=== PATIENT | female | born 1965 | race Caucasian/White ===

== ENCOUNTER 2017-06-20 16:56 | Emergency (ER) | payer OTHER, SELFPAY ==
[2017-06-20 17:12] VITALS: BP 103/60; PULSE 97; RESP 18; TEMP 37.2; O2SAT 100; BMI 22.0
[2017-06-20 17:43] VITALS: BP 148/81; PULSE 88; RESP 16; O2SAT 99
--- NOTE | 2017-06-20 17:45 | PC.NURSE ---
Only complaint is dizziness/nausea when she moves her head.
--- NOTE | 2017-06-20 18:21 | ED.DIZZY ---
HPI - Dizziness General Chief Complaint: Dizziness Stated Complaint: VERTIGO Time Seen by Provider: 06/20/17 17:31 Source: patient and RN notes reviewed Mode of arrival: wheelchair Limitations: no limitations History of Present Illness HPI Narrative: Patient is a 51-year-old female who presents with sudden-onset dizziness around 930 her 10:00 a.m.. She said she woke up at 8:30 a.m. she went to the bathroom she went back to sleep and this woke her up. If she lies flat and still she feels okay however any movement turning her head in either direction or sitting up makes her extremely dizzy. She vomited 1 time really does not feel nauseous. No chest pain heart palpitations abdominal pain. She denies any focal deficits. MD complaint: dizziness Related Data Previous Rx's Medication Instructions Recorded diazepam [Valium] 5 mg PO TID PRN #10 tab 06/20/17 ondansetron [Zofran ODT] 4 mg PO Q6H PRN #10 tab 06/20/17 Allergies Allergy/AdvReac Type Severity Reaction Status Date / Time No Known Drug Allergies Allergy Verified 06/20/17 17:17 Review of Systems Review of Systems All systems reviewed & are unremarkable except as noted in HPI and below Constitutional Denies chills, Denies fever(s), Denies headache(s), Denies lethargy and Denies weakness Eyes Denies loss of vision ENT Ears, Nose, Mouth, and Throat: Reports system reviewed and no additional complaints, except as docu, Reports vertigo, Reports dizziness and Denies headache(s) Cardiovascular Denies chest pain, Denies syncope, Denies irregular heart rhythm, Denies lightheadedness, Denies palpitations, Denies dyspnea, Denies dyspnea on exertion and Denies orthopnea Respiratory Denies cough, Denies dyspnea, Denies dyspnea on exertion and Denies wheezing Gastrointestinal Gastrointestinal: Denies diarrhea, Denies nausea and Reports vomiting Integumentary/Breasts Denies pruritus, Denies erythema, Denies rash and Denies wounds Comments: History of basal cell skin cancer Neurologic Reports system reviewed and no additional complaints, except as docu, Reports as per HPI, Reports vertigo, Reports dizziness, Denies syncope, Denies headache(s), Denies loss of vision and Denies weakness Endocrine Denies palpitations Allergic/Immunologic Denies wheezing [facility] History Basal cell carcinoma (Acute) Melanoma (Acute) Social History Smoking Status: Never smoker Exam Const General: cooperative and well developed Nutritional Appearance: well nourished Orientation: alert, awake, oriented x3 and not confused Eyes Eyelids: eyelids normal Conjunctivae: conjunctivae normal Pupils: PERRL EOM: EOM intact bilaterally and nystagmus (To the right) Neck Neck: normal visual inspection, trachea midline, No lymphadenopathy, No midline deformity and No JVD Lymphatic: No lymphedema Resp Effort & Inspection: normal respiratory effort, able to speak in complete sentences, no respiratory distress and no use of accessory muscles Auscultation: clear to auscultation bilaterally, no rales, no rhonchi and no wheezes Cardio Rate: regular rate Rhythm: regular rhythm Heart Sounds: no click, no gallops, no murmurs and no rubs Pulses: normal peripheral pulses GI Inspection: non-distended Palpation: soft, no hepatosplenomegaly, No guarding, No pulsatile mass and No tender Auscultation: normal bowel sounds Neuro General: alert, oriented x3, gait normal and no focal motor deficits Cranial Nerves: nystagmus (To the right) Speech: speech normal Motor: strength 5/5 throughout Sensory Exam: no sensory deficits noted Coordination: [id number] test normal and [id number] test normal MDM - Dizziness MDM Narrative Medical decision making narrative: Patient is feeling much better after Valium. She is sitting up she feels like she is able to go home. We discussed warning signs of when to return to the ED. Symptoms are worse with movement and better with being still. Consistent with benign paroxysmal positional vertigo. She does have peripheral nystagmus as well. NIH Stroke Scale/Score (NIHSS) from [email or web address] on 06/20/2017 All calculations should be rechecked by clinician prior to use RESULT SUMMARY: 0 points NIH Stroke Scale INPUTS: 1A: Level of consciousness ???> 0 = Alert; keenly responsive 1B: Ask month and age ???> 0 = Both questions right 1C: 'Blink eyes' & 'squeeze hands' ???> 0 = Performs both tasks 2: Horizontal extraocular movements ???> 0 = Normal 3: Visual arriola ???> 0 = No visual loss 4: Facial palsy ???> 0 = Normal symmetry 5A: Left arm motor drift ???> 0 = No drift for 10 seconds 5B: Right arm motor drift ???> 0 = No drift for 10 seconds 6A: Left leg motor drift ???> 0 = No drift for 5 seconds 6B: Right leg motor drift ???> 0 = No drift for 5 seconds 7: Limb Ataxia ???> 0 = No ataxia 8: Sensation ???> 0 = Normal; no sensory loss 9: Language/aphasia ???> 0 = Normal; no aphasia 10: Dysarthria ???> 0 = Normal 11: Extinction/inattention ???> 0 = No abnormality Differential Diagnosis Likely adverse reaction to drug, benign paroxysmal positional vertigo, orthostatic hypotension, vertebral basilar insufficiency, cerebrovascular accident, acute vestibular neuronitis and transient cerebral ischemia Medical Records Attestation: I reviewed the patient's medical records. Lab Data Attestation: I reviewed the patient's lab results. Result diagrams: 06/20/17 18:48 06/20/17 18:29 Lab Results 06/20/17 06/20/17 Range/Units 18:29 18:48 WBC 7.9 (4.5-11.0) X10^3/uL RBC 4.43 (4.0-5.2) X10^6/uL Hgb 13.5 (12.0-16.0) g/dL Hct 39.8 (36-46) % MCV 89.9 (80-100) fL MCH 30.6 (26-34) PG MCHC 34.0 (30-36) % RDW 13.3 (11.6-14.8) % Plt Count 237 (150-400) X10^3/uL Neut % (Auto) 83.4 H (50-75) % Lymph % (Auto) 11.9 L (25-40) % Holt % (Auto) 3.7 (3-14) % Eos % (Auto) 0.0 L (2-4) % Baso % (Auto) 1.0 (0-2) % Neut # (Auto) 6600 H (3809-4556) /uL Sodium 139 (137-145) mmol/L Potassium 3.8 (3.4-5.1) mmol/L Chloride 104.0 (98-107) mmol/L Carbon Dioxide 22.0 (22-32) mmol/L BUN 15.0 (7-17) mg/dL Creatinine 0.70 (0.52-1.04) mg/dL Estimated GFR > 60.0 (>60) mL/min BUN/Creatinine Ratio 21.4 (6-22) Glucose 103 H (70-100) mg/dL Calcium 9.2 (8.4-10.2) mg/dL ECG Data Attestation: I personally reviewed and interpreted this ECG as follows: Prior ECG tracings: available for review Interpretation: Normal sinus rhythm rate [address] changes no prior Course Orders Ordered: ED Orders 06/20/17 17:32 EKG-12 Lead Stat 06/20/17 18:29 Basic Metabolic Panel Stat 06/20/17 18:48 Complete Blood Count AUTO DIFF Stat Discontinued Medications Diazepam (Valium) 5 mg PO NOW ONE Stop: 06/20/17 19:43 Last Admin: 06/20/17 19:48 Dose: 5 mg Sodium Chloride (Normal Saline 0.9%) 1,000 mls @ 1,000 mls/hr IV BOLUS ONE Stop: 06/20/17 19:27 Last Infusion: 06/20/17 20:33 Dose: 0 mls/hr Admin: 06/20/17 19:07 Dose: 1,000 mls/hr Sodium Chloride (Normal Saline 0.9%) 1,000 mls @ 150 mls/hr IV CONT AMY Last Admin: 06/20/17 20:33 Dose: Meclizine HCl (Antivert) 50 mg PO NOW ONE Stop: 06/20/17 18:29 Last Admin: 06/20/17 19:05 Dose: 50 mg Ondansetron HCl (Zofran) 4 mg IV NOW ONE Stop: 06/20/17 18:29 Last Admin: 06/20/17 18:55 Dose: 4 mg Ondansetron HCl (Zofran Odt Prepack) 1 bottle MISC SEEINSTR ONE Stop: 06/20/17 20:27 Last Admin: 06/20/17 20:38 Dose: 1 bottle Reevaluation(s) Reevaluation #1: Sitting up after meclizine appears a little better but she still says that she still feels dizzy. No longer nauseated tired rating oral fluids. Will try Zofran. Time: 19:42 Last Vital Signs Temp 99.0 F 06/20/17 17:12 Pulse 77 06/20/17 20:40 Resp 16 06/20/17 20:40 BP 108/54 L 06/20/17 20:40 Pulse Ox 100 06/20/17 20:40 Discharge Plan Departure Patient Disposition: Home, Self-Care Clinical Impression: Benign paroxysmal positional vertigo Discharge Date/Time: 06/20/17 20:40 Interventions: ED Discharge Assessment Last Done: 06/20/17 20:40 Instructions: DI for Benign Paroxysmal Positional Vertigo Activity Restrictions/Additional Instructions: *You have been diagnosed with vertigo *What to do: This should resolve spontaneously, symptomatic control at this time *Take medications as directed -Zofran every 4-6 hours if needed for nausea or vomiting -Valium every 8 hr if needed for dizziness *Follow up with your primary care provider in 2-3 days *Return to ER if you should have persistent ongoing or worsening dizziness, weakness, persistent vomiting or any new, worsening or concerning symptoms CONTROLLED SUBSTANCE DISCHARGE (Narcotoic/benzodiazepine/Flexeril/Phenergan) 1. You have been prescribed narcotic medications, it does have acetaminophen/Tylenol/paracetamol in it so do not take extra Tylenol or Tylenol containing products 2. Please understand that we cannot provide further refills of narcotics, benzodiazepines or controlled substances through the ED and her pain management will need to be through your provider. 3. While on these medications you cannot drive or operate heavy machinery. 4. You cannot sign legal documents or perform any duties such as this. 5. As long as you're taking opiate pain medications he should also be taking a stool softener such as Colace, Dulcolax, MiraLAX or prune juice, to help avoid constipation. Prescriptions: New ondansetron [Zofran ODT] 4 mg tablet,disintegrating 4 mg PO Q6H PRN (Reason: nausea and vomiting) Qty: 10 RF: 0 diazepam [Valium] 5 mg tablet 5 mg PO TID PRN (Reason: dizziness) Qty: 10 RF: 0 Referrals: Linda Lewis PA-C [Primary Care Provider] -
[2017-06-20] MEDS: ONDANSETRON 4 MG/2 ML INJ IV (18:55)
[2017-06-20 19:01] LABS: BUN Creatinine Ratio 21.4 (6-22); Calcium 9.2 mg/dL (8.4-10.2); Estimated Glomerular Filt Rate > 60.0 mL/min (>60); Glucose 103 mg/dL (70-100); HEMOLYSIS < 15 (0-50); Potassium 3.8 mmol/L (3.4-5.1); Sodium 139 mmol/L (137-145)
[2017-06-20 19:03] LABS: Add Manual Diff / Slide Review NO; Hematocrit 39.8 % (36-46); Hemoglobin 13.5 g/dL (12.0-16.0); Lymphocytes Percent Auto 11.9 % (25-40); Mean Corpuscular Hemoglobin 30.6 PG (26-34); Mean Corpuscular Volume 89.9 fL (80-100); Monocytes Percent Auto 3.7 % (3-14); Neutrophils Absolute Auto 6600 /uL (3000-5900); Neutrophils Percent Auto 83.4 % (50-75); Platelet Count 237 X10^3/uL (150-400); Red Blood Cell Count 4.43 X10^6/uL (4.0-5.2); Red Cell Distribution Width 13.3 % (11.6-14.8); White Blood Cell Count 7.9 X10^3/uL (4.5-11.0)
[2017-06-20] MEDS: MECLIZINE HCL 12.5 MG TABLET 50 MG PO (19:05)
[2017-06-20] MEDS: SODIUM CHLORIDE 0.9% 1,000 ML 1000 ML IV (19:07)
[2017-06-20 19:32] VITALS: BP 114/70; PULSE 80; RESP 12; O2SAT 100
[2017-06-20] MEDS: diazePAM 5 MG TABLET PO (19:48)
--- NOTE | 2017-06-20 19:49 | PC.NURSE ---
Patient reports no change in dizziness symptoms after meclizine. BOTE aware and valium given.
[2017-06-20 20:00] VITALS: BP 99/47; PULSE 79; O2SAT 99
[2017-06-20 20:16] VITALS: BP 108/54; PULSE 77; RESP 16; O2SAT 100
[2017-06-20] MEDS: ONDANSETRON 4 MG ODT PREPACK 1 BOTTLE MISC (20:38)
[2017-06-20 20:40] VITALS: BP 108/54; PULSE 77; RESP 16; O2SAT 100
== END 2017-06-20 20:40 | disposition home or self-care (01) ==
PROVIDERS: Emergency Provider Emergency Medicine; PCP Physician Assistant
DX: H81.10 Benign paroxysmal vertigo, unspecified ear (principal)
CPT/HCPCS: 36591; 80048; 85025; 93005; 96361; 96374; 99283; 99284; J2405

== ENCOUNTER → 2020-08-08 09:21 | Outpatient (CLI) | payer OTHER, SELFPAY ==
--- NOTE | 2020-08-08 | DI.MG.S_ITS ---
BILATERAL DIGITAL DIAGNOSTIC MAMMOGRAM 3D/2D: 08/08/2020 CLINICAL: Left breast lump. Comparison is made to exams dated: 05/03/2016 ultrasound and 05/03/2016 mammogram - [facility]. The tissue of both breasts is heterogeneously dense. This may lower the sensitivity of mammography. There are multiple presumed cysts in the left breast that are increased in size and more prominent and correlate with clinical concern and palpable area as indicated by the triangle skin marker. No significant masses, calcifications, or other findings are seen in either breast. IMPRESSION: INCOMPLETE: NEEDS ADDITIONAL IMAGING EVALUATION Multiple presumed cysts in the left breast correlating with area of clinical concern. An ultrasound is recommended for further evaluation and is scheduled to immediately follow this examination. This exam was interpreted at Station ID: [id number]. NOTE: For mammograms, a report in lay terms will be sent to the patient. Approximately 15% of breast malignancies will not be visualized mammographically. In the management of a palpable breast mass, a negative mammogram must not discourage biopsy of a clinically suspicious lesion. Electronically Signed By: Biju Joseph M.D. aty/:08/08/2020 10:58:20 ACR BI-RADS Category 0: Incomplete [id number]
--- NOTE | 2020-08-08 09:23 | DI.US.S_ITS ---
ULTRASOUND OF LEFT BREAST: 08/08/2020 CLINICAL: Palpable left breast lump. Comparison is made to exams dated: 08/08/2020 mammogram, 05/03/2016 ultrasound, and 05/03/2016 mammogram - [facility]. Color flow and real-time ultrasound of the left breast were performed. [place] scale images of the real-time examination were reviewed. There is a 2.8 cm x 2.1 cm x 2.9 cm oval cyst in the left breast at 11 o'clock middle depth 2 cm from the nipple. This oval cyst is anechoic. This correlates as palpated, with mammography findings, and area of clinical concern. Color flow imaging demonstrates that there is no vascularity present. There also is a 1.4 cm x 1.1 cm x 1.4 cm oval cyst in the left breast at 11 o'clock middle depth 2 cm from the nipple. This oval cyst is anechoic. This correlates as palpated, with mammography findings, and area of clinical concern. Color flow imaging demonstrates that there is no vascularity present. Additionally, there is a 2.5 cm x 2 cm x 2.1 cm oval cyst in the left breast at 3 o'clock middle depth 2 cm from the nipple. This oval cyst is anechoic. This correlates as palpated and with area of clinical concern. Color flow imaging demonstrates that there is no vascularity present. IMPRESSION: BENIGN There is no sonographic evidence of malignancy. The 2.8 cm x 2.1 cm x 2.9 cm oval simple cyst in the left breast at 11 o'clock middle depth is benign. The 1.4 cm x 1.1 cm x 1.4 cm oval simple cyst in the left breast at 11 o'clock middle depth is benign. The 2.5 cm x 2 cm x 2.1 cm oval simple cyst in the left breast at 3 o'clock middle depth is benign. Recommend clinical follow up for persistent or worsening symptoms, or development of any clinically suspicious findings. Cyst aspiration may also be considered if they become progressively enlarged and/or more symptomatic. A 1 year screening mammogram is recommended. Findings and recommendations were conveyed to the patient during today's evaluation. This exam was interpreted at Station ID: [id number]. Electronically Signed By: Biju Joseph M.D. aty/:08/08/2020 11:43:11 letter sent: Clinical Evaluation Ultrasound BI-RADS: 2 Benign
== END ==
PROVIDERS: PCP Registered Nurse Diabetes Educator; Referring Provider Registered Nurse; Visit Provider Registered Nurse
DX: N60.02 Solitary cyst of left breast (principal); R92.8 Other abnormal and inconclusive findings on diagnostic imaging of breast
CPT/HCPCS: 76642; 77066; G0279

== ENCOUNTER → 2020-08-14 14:06 | Outpatient (CLI) | payer OTHER, SELFPAY ==
[2020-08-14 14:39] LABS: Hematocrit 39.6 % (36-46); Hemoglobin 13.2 g/dL (12.0-16.0); Mean Corpuscular HGB Conc 33.3 % (30-36); Mean Corpuscular Hemoglobin 30.1 PG (26-34); Mean Corpuscular Volume 90.5 fL (80-100); Platelet Count 277 X10^3/uL (150-400); Red Blood Cell Count 4.38 X10^6/uL (4.0-5.2); Red Cell Distribution Width 13.4 % (11.6-14.8); White Blood Cell Count 6.4 X10^3/uL (4.5-11.0)
[2020-08-14 14:52] LABS: Alanine Aminotransferase 14 IU/L (<35); Albumin 4.3 g/dL (3.5-5.0); Albumin Globulin Ratio 1.3 (1.0-2.8); Alkaline Phosphatase 55 U/L (38-126); Aspartate Aminotransferase 23 IU/L (14-36); BUN Creatinine Ratio 10.6 (6-22); Bilirubin Total 0.4 mg/dL (0.2-1.3); Blood Urea Nitrogen 9 mg/dL (7-17); Calcium 9.2 mg/dL (8.4-10.2); Carbon Dioxide 26 mmol/L (22-32); Chloride 107 mmol/L (98-107); Cholesterol 177 mg/dL (140-199); Estimated Glomerular Filt Rate > 60.0 mL/min (>60); Globulin 3.3 g/dL (1.7-4.1); Glucose 100 mg/dL (70-100); HDL Cholesterol 56 mg/dL (40-60); HEMOLYSIS < 15 (0-50); LDL Cholesterol Calculated 103 mg/dL (<100); Potassium 4.4 mmol/L (3.4-5.1); Sodium 140 mmol/L (137-145); Total Protein 7.6 g/dL (6.3-8.2); Triglycerides 89 mg/dL (35-150)
[2020-08-14 16:29] LABS: TSH w/ Reflex to FT4 0.12 uIU/mL (0.47-4.68)
[2020-08-14 17:21] LABS: Free T4, Direct Thyroxine 1.22 ng/dL (0.78-2.19)
== END ==
PROVIDERS: PCP Registered Nurse Diabetes Educator; Referring Provider Registered Nurse Diabetes Educator; Visit Provider Registered Nurse Diabetes Educator
DX: Z00.00 Encounter for general adult medical examination without abnormal findings (principal)
CPT/HCPCS: 36415; 80053; 80061; 84439; 84443; 85027

== ENCOUNTER → 2020-09-15 13:15 | Outpatient (CLI) | payer OTHER, SELFPAY ==
[2020-09-15 14:47] LABS: Free T3, Triiodothyronine Free 3.95 pg/mL (2.77-5.27); Free T4, Direct Thyroxine 1.23 ng/dL (0.78-2.19)
[2020-09-15 14:59] LABS: Thyroid Stimulating Hormone 0.102 uIU/mL (0.47-4.68)
[2020-09-17 14:18] LABS: Thyroid Stimulating Immunoglob < 0.10 IU/L (0.00-0.55)
== END ==
PROVIDERS: PCP Registered Nurse Diabetes Educator; Referring Provider Registered Nurse Diabetes Educator; Visit Provider Registered Nurse Diabetes Educator
DX: R79.89 Other specified abnormal findings of blood chemistry (principal)
CPT/HCPCS: 36415; 84439; 84443; 84445; 84481

== ENCOUNTER → 2020-12-05 14:23 | Outpatient (CLI) | payer OTHER, SELFPAY ==
[2020-12-05 15:10] LABS: Free T3, Triiodothyronine Free 4.22 pg/mL (2.77-5.27); Free T4, Direct Thyroxine 0.97 ng/dL (0.78-2.19)
[2020-12-05 15:24] LABS: Thyroid Stimulating Hormone 2.01 uIU/mL (0.47-4.68)
== END ==
PROVIDERS: PCP Registered Nurse Diabetes Educator; Referring Provider Registered Nurse Diabetes Educator; Visit Provider Registered Nurse Diabetes Educator
DX: R79.89 Other specified abnormal findings of blood chemistry (principal)
CPT/HCPCS: 36415; 84439; 84443; 84481

== ENCOUNTER → 2022-03-19 11:48 | Outpatient (CLI) | payer OTHER, SELFPAY ==
[2022-03-19 12:17] LABS: Hematocrit 40.9 % (36-46); Hemoglobin 13.9 g/dL (12.0-16.0); Mean Corpuscular Hemoglobin 31.4 PG (26-34); Mean Corpuscular Volume 92.4 fL (80-100); Platelet Count 237 X10^3/uL (150-400); Red Blood Cell Count 4.43 X10^6/uL (4.0-5.2); Red Cell Distribution Width 13.1 % (11.6-14.8); White Blood Cell Count 7.8 X10^3/uL (4.5-11.0)
[2022-03-19 12:27] LABS: Hemoglobin A1C% w Est Avg Glu 5.2 % (4.0-6.0)
[2022-03-19 12:34] LABS: Alanine Aminotransferase 17 IU/L (<35); Albumin 4.5 g/dL (3.5-5.0); Albumin Globulin Ratio 1.5 (1.0-2.8); Alkaline Phosphatase 53 U/L (38-126); Aspartate Aminotransferase 22 IU/L (14-36); BUN Creatinine Ratio 14.3 (6-22); Bilirubin Total 0.9 mg/dL (0.2-1.3); Blood Urea Nitrogen 12 mg/dL (7-17); Calcium 9.2 mg/dL (8.4-10.2); Carbon Dioxide 24 mmol/L (22-32); Chloride 102 mmol/L (98-107); Cholesterol 186 mg/dL (140-199); Estimated Glomerular Filt Rate > 60 mL/min (>60); Globulin 3.1 g/dL (1.7-4.1); Glucose 94 mg/dL (70-100); HDL Cholesterol 56 mg/dL (40-60); HEMOLYSIS < 15 (0-50); LDL Cholesterol Calculated 108 mg/dL (<100); Sodium 139 mmol/L (137-145); Total Protein 7.6 g/dL (6.3-8.2); Triglycerides 112 mg/dL (35-150)
[2022-03-19 13:04] LABS: TSH w/ Reflex to FT4 1.46 uIU/mL (0.47-4.68)
== END ==
PROVIDERS: PCP Registered Nurse Diabetes Educator; Referring Provider Registered Nurse Diabetes Educator; Visit Provider Registered Nurse Diabetes Educator
DX: E78.00 Pure hypercholesterolemia, unspecified (principal); R53.83 Other fatigue; R73.01 Impaired fasting glucose
CPT/HCPCS: 36415; 80053; 80061; 83036; 84443; 85027

== ENCOUNTER → 2024-01-13 16:47 | Outpatient (CLI) | payer OTHER, SELFPAY ==
--- NOTE | 2024-01-13 | DI.MG.S_ITS ---
BILATERAL DIGITAL SCREENING MAMMOGRAM 3D/2D WITH CAD: 01/13/2024 CLINICAL: Routine screening. Family history of breast cancer. Comparison is made to exams dated: 08/08/2020 mammogram and 05/03/2016 mammogram - [facility]. The breasts are heterogeneously dense, which may obscure small masses (category c / 51-75% glandular tissue). Current study was also evaluated with a Computer Aided Detection (CAD) system. There are benign cysts in both breasts. No significant masses, calcifications, or other findings are seen in either breast. There has been no significant interval change. IMPRESSION: BENIGN There is no mammographic evidence of malignancy. A 1 year screening mammogram is recommended. Based on Tyrer-Cuzick model (a risk assessment model), the patient's lifetime risk is 21.5% and her 10 year risk is 7.3%. If a patient has an elevated risk, a more comprehensive evaluation should be considered and/or a referral to a genetic counselor. The [employer], [employer], and NCCN Guidelines advise the consideration of Breast MRI as an adjunct to screening mammography in patients whose Lifetime risk to develop breast cancer is 20% or higher. This exam was interpreted at Station ID: [id number]. NOTE: For mammograms, a report in lay terms will be sent to the patient. Approximately 15% of breast malignancies will not be visualized mammographically. In the management of a palpable breast mass, a negative mammogram must not discourage biopsy of a clinically suspicious lesion. Electronically Signed By: Diamond best/ghada:01/16/2024 13:03:17 letter sent: Normal Exam ACR BI-RADS Category 2: Benign
== END ==
PROVIDERS: PCP Registered Nurse Diabetes Educator; Referring Provider Registered Nurse Diabetes Educator; Visit Provider Registered Nurse Diabetes Educator
DX: Z12.31 Encounter for screening mammogram for malignant neoplasm of breast (principal); R92.333 Mammographic heterogeneous density, bilateral breasts; Z80.3 Family history of malignant neoplasm of breast
CPT/HCPCS: 77063; 77067